=== PATIENT | female | born 1950 | race Caucasian/White ===

== ENCOUNTER 2022-11-18 16:29 | Emergency (ER) | payer MEDICARE ==
[~2022-11-18] VITALS: Ht 154.9 cm; Wt 63.5 kg
--- NOTE | 2022-11-18 16:50 | NUR ---
AT BEDSIDE FOR EVAL.
[2022-11-18] MEDS ORDERED: ACETAMINOPHEN ES 500 MG TABLET ONE (16:59)
[2022-11-18] MEDS ORDERED: ACETAMINOPHEN 325 MG TABLET PO ONE (17:00)
--- NOTE | 2022-11-18 17:12 | NUR ---
PT IN BED 12, A/OX4 MARSHALLESE SPEAKING. NO S/S OF RESPIRATORY DISTREES OR SOB. C/O: LEFT KNEE PAIN X3 DAYS PAIN WORSE WHEN AMBULATING. REQUIRES ASSITANCE WITH AMBULATION. CONNECTED TO BEDSIDE MONITOR BP ELVATED 165/73. PT HAS Hx OF HTN TAKING RX. NKA. IN BED FOWLERS POSTION. BED LOCKED IN LOWEST POSION FAMILY AT [facility].
[2022-11-18] MEDS ORDERED: NAPR-1164 PO (18:29)
[2022-11-18] MEDS ORDERED: KETOROLAC TROMETHAMINE INJ 60 MG/2 ML VIAL IM ONE (18:30)
[2022-11-18] MEDS ORDERED: KETOROLAC TROMETHAMINE 15 MG/ML VIAL ONE (18:41)
[2022-11-18 20:29] VITALS: BP 122/72
== END 2022-11-18 20:30 | disposition home or self-care (01) ==
LOC: ER 16:35
DX: M17.12 Unilateral primary osteoarthritis, left knee (principal); I10 Essential (primary) hypertension; E78.5 Hyperlipidemia, unspecified; Z79.899 Other long term (current) drug therapy
CPT/HCPCS: 99283; 96372; 73564; J1885